=== PATIENT | male | born 1935 | race Caucasian/White ===

== ENCOUNTER → 2019-12-04 | Day surgery (SDC) | payer MEDICARE ==
[2019-12-02 15:17] LABS: BASOPHILS % 0.3 % (0.0-1.0); EOSINOPHILS # (AUTO) 0.1 (0.0-0.4); HEMATOCRIT 39.2 % (38.2-49.6); HEMOGLOBIN 13.4 g/dL (14.0-18.0); LYMPHOCYTES # (AUTO) 1.2 (1.0-3.2); LYMPHOCYTES % 16.5 % (18.0-39.1); MEAN CORPUSCULAR HEMOGLOBIN 32.4 pg (28-32); MEAN CORPUSCULAR HGB CONC 34.2 g/dL (31-35); MEAN CORPUSCULAR VOLUME 94.9 fL (81-99); MONOCYTES # (AUTO) 0.4 (0.2-0.8); NEUTROPHILS # (AUTO) 5.3 (2.1-6.9); NEUTROPHILS % 76.1 % (38.7-80.0); PLATELET COUNT 142 x10e3/uL (140-360); RED BLOOD COUNT 4.13 x10e6/uL (4.3-5.7); RED CELL DISTRIBUTION WIDTH 12.7 % (11.7-14.4)
--- NOTE | 2019-12-02 15:21 | Diagnostic Imaging Report ---
Chest, PA and lateral. History: Preoperative evaluation, M65.88. Comparison: None available. Discussion: The cardiomediastinal silhouette and pulmonary vasculature are within normal limits. The lungs are clear without evidence of consolidation or effusion. There are no acute osseous abnormalities. IMPRESSION: No acute cardiopulmonary abnormality. Signed by: Leroy Ahmadi MD on 12/02/2019 3:18 PM
[~2019-12-04] MED LIST: BACITRACIN 50,000 UNIT VIAL ONE; BUPIVACAINE HCL 0.5% INJ 30 ML VIAL INJ ONE; CEFAZOLIN SOD 1 GM/NS 50ML 50 ML IV ONE; CIPRO500 MG PO; DEXAMETHASONE SOD PHOS INJ 4 MG/ML VIAL ONE; LIDOCAINE HCL 2% LOCAL INJ 5 ML SDV VIAL INJ ONE; MUPIROCIN 2% OINT 22 GM TUBE ONE; ONDANSETRON HCL INJ 2MG/ML 2ML 2 MG/ML VIAL ONE; PREDNISONE10 MG PO; PROPOFOL IV EMULSION 10 MG/ML 20 ML VIAL ONE; SEVOFLURANE INHAL SOLN 250 ML PEN BTL ONE; SUGAMMADEX SODIUM 200 MG/2 ML VIAL IV ONE
--- OUTSIDE RECORDS SUMMARY | 2019-12-04 06:22 | XMS REPORT | Summary of Care ---
Author Oliverio Moore M.A. 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 * Quantity: 15 Refills: 0 YEH D.O., JARED-CANDELARIA * Start : 03-Jul-2018 Active Allergies and Adverse Reactions Name Dates Details No Known Drug Allergies (Allergy) Status: Active Past Medical History Name Dates Details H/O blood clots (V12.51, Z86.718) Status: Resolved History of backache (V13.59, Z87.39) Status: Resolved History of Cyst Status: Resolved History of Tumor cells (239.9, D49.9) Status: Resolved Procedures Procedure Dates Details History of Tonsillectomy With Adenoidectomy Completed History of Achilles tendon surgery Completed Immunization Name Dates Details Immunizations not documented Social History Name Dates Details - Status: Name Dates Details Never smoker Vital Signs Date Test Result Details [id number] BP Systolic 143 mm[Hg] Status: Comments: Location: LUE; Position: Sitting BP Diastolic 83 mm[Hg] Status: Comments: Location: LUE; Position: Sitting Physical Findings 1 Status: Comments: PHQ-9 Adult Depression Screening Height 67 in Status: Weight 183 lb Status: Body Mass Index Calculated 28.66 kg/m2 Status: Body Surface Area Calculated 1.95 m2 Status: Temperature 98.1 f Status: Comments: Method: Temporal Respiration Rate 16 /min Status: Heart Rate 83 /min Status: Results Date Description Value Details Results not documented Plan of Care Name Dates Details Planned Observations Planned Goals not documented Planned Encounters Infectious Disease Referral Interventions Provided Plan* Wound Discharge/Achilles Tendon Injury - stable. Obtain MRI of ankle per wound care. Referred Pt to infectious disease as this is recurring. * Meralgia Parestheica - Stable. Continue Mobic and Tizanadine PRN. * Follow-up in 3 months, sooner if needed Instructions Name Dates Details Instructions not documented Encounters Appointment; IVANIA TRACEY D.O. Encounter Diagnosis: Problem not documented On: 26-Mar-2018 15:15 Appointment; IVANIA TRACEY D.O. Encounter Diagnosis: Problem not documented On: 10-Apr-2018 15:15 Appointment; IVANIA TRACEY D.O. Encounter Diagnosis: Problem not documented On: 24-Jun-2018 13:45 Appointment; IVANIA TRACEY D.O. Encounter Diagnosis: Problem not documented On: 03-Sep-2019 14:45
--- OUTSIDE RECORDS SUMMARY | 2019-12-04 06:22 | XMS REPORT | Summary of Care ---
Author Author Tiffanie Simpson M.A. [facility] Unknown Address [facility] Phone Unavailable Care Team Providers Care Concrete Rubber Name Role Phone ALEXY Enriquez, IVANIA Unavailable Unavailable YEH DO [facility], IVANIA Unavailable Unavailable Unavailable Unavailable Functional Status [...] smoker Vital Signs Date Test Result Details [id number]-[id number] BP Systolic 143 mm[Hg] Status: Comments: Location: [...] Details Planned Observations Planned Goals not documented Interventions Provided Follow-ups/Referrals* Infectious Disease Referral; To Be Done: 03 Sep 2019 Plan* Wound Discharge/Achilles Tendon Injury - stable. [...]
--- OUTSIDE RECORDS SUMMARY | 2019-12-04 06:22 | XMS REPORT ---
Author Author [facility] Address Unknown Phone Unavailable Care Team Providers Care Adjunct Faculty Instructor Name Role Phone PIERCE LEONARD Unavailable Unavailable Payers Payer Name Policy Type Policy Number Effective Date Expiration Date Problems This patient has no known problems. Allergies, Adverse Reactions, Alerts This patient has no known allergies or adverse reactions. Medications This patient has no known medications. Results Test Description Test Time Test Comments Text Results Atomic Results Result Comments CHEST 2 VIEWS 2019-12-02 15:17:00 [place] [address] Patient Name: GABRIELA CERON MR #: [id number] : 1935 Age/Sex: 84/M Req #: [id number] Adm Physician: Ordered by: PIERCE LEONARD MD Report #: [id number] Location: OR Room/Bed: Procedure: [id number] DX/CHEST 2 VIEWS Exam Date: 12/02/19 Exam Time: 1440 REPORT STATUS: Signed Chest, PA and lateral. History: Preoperative evaluation, M65.88. Comparison: None available. Discussion: The cardiomediastinal silhouette and pulmonary vasculature are within normal limits. The lungs are clear without evidence of consolidation or effusion. There are no acute osseous abnormalities. IMPRESSION: No acute cardiopulmonary abnormality. Signed by: Leroy Blevins MD on 12/02/2019 3:18 PM Dictated By: LEROY BLEVINS MD 17 Transcribed By: KADI on 12/02/191517 COPY TO: PIERCE LEONARD MD - MRI LW JNT W/O CONT RT 2019-09-10 16:36:00 FAX: John Copeland MD [phone] [place]: St: REG Name: GABRIELA CERON [facility] : 1935 Age/S: 84/M [address] [place] [address] Unit #: [id number] Loc: [place] [address] Phys: John Negrete MD Acct: [id number] Dis Date: Status: REG CLI PHONE #: [phone] Exam Date: 09/10/2019 1434 FAX #: [phone] Reason: OSTEOMYELITIS EXAMS: CPT CODE: [id number] MRI LW JNT W/[place] [address] - MRI LW JNT W/O CONT RT, 09/10/2019 1:37 PM INDICATION: Osteomyelitis COMPARISON: None TECHNIQUE: Multi-planar, multi-sequence MR imaging of the right ankle and hindfoot was performed using routine protocol without gadolinium-based contrast. FINDINGS: . Bones: Normal marrow signal. No fracture, neoplasm,or osteonecrosis. . Soft tissues:Mild subcutaneous edema noted. No organized fluid collections identified. . Joints: No effusion or malalignment. . Medial flexor tendons: (including tibialis posterior, flexor digitorum longus, and flexor hallucis longus): Intact. . Peroneal tendons: Intact. . Anterior extensor tendons: (including tibialis anterior, extensor hallucis longus, and extensor digitorum longus): Intact. . Achilles tendon: There is previous Achilles tendon repair. The tendon is markedly thickened. There is T2 hyperintensity within the tendon measuring 1.47 m in width by 0.5 centers AP and extending for approximately 2.5 cm in length. This may represent small residual tear or mucinous degeneration. No full-thickness tear. Soft tissue anchors are identified in the posterior calcaneus. The tendon at the repair appears intact.. Lateral ligaments (including anterior/posterior tibiofibular, anterior/posterior talofibular and calcaneofibular): Intact. . Medial ligaments (including deep and superficial deltoid): Intact. . Plantar fascia: Intact. . Additional Comments: None. IMPRESSION: 1. Subcutaneous edema suggestive of cellulitis. Negative for osteomyelitis. 2. Previous Achilles tendon repair. The Achilles tendon is markedly thickened with longitudinal interstitial fluid signal which may represent mucinous degeneration or residual interstitial tear. PAGE 1 Signed Report (CONTINUED) FAX: John Copeland MD [phone] [place]: St: REG Name: GABRIELA CERON [facility] : 1935 Age/S: 84/M [address] [place] [address] Unit #: [id number] Loc: [place] [address] Phys: John Negrete MD Acct: [id number] Dis Date: Status: REG CLI PHONE #: [phone] Exam Date: 09/10/2019 1434 FAX #: [phone] Reason: OSTEOMYELITIS EXAMS: CPT CODE: [id number] MRI LW JNT W/[place] [address] <Continued> SL: KRE-H at 1636 Reported and signed by: Naun Sosa M.D. CC: John Ramirez Penelope Technologist: RT Gordo(R)(MR) Trnscrd Date/Time/By: 09/10/2019 (2726) : By: [email or web address] Orig Print D/T: S: 09/10/2019 (3081) PAGE 2 Signed Report
[2019-12-04 09:10] VITALS: BP 110/87
--- NOTE | 2019-12-04 12:50 | Operative Report ---
DATE OF PROCEDURE: 12/04/2019 SURGEON: Nazario Scott MD PREOPERATIVE DIAGNOSIS: Right Achilles tendon purulent tenosynovitis. POSTOPERATIVE DIAGNOSIS: Right Achilles tendon purulent tenosynovitis. PROCEDURE: Debridement of right Achilles tendon. ANESTHESIA: General. HISTORY: The patient is an 84-year-old male, who approximately a 1 to 1-1/2 years ago underwent grafting of the right Achilles tendon for a rupture. His postoperative course has been consistent for a persistent draining sinus at the bottom of his incision. He has had numerous courses of antibiotics without any improvement. MRI shows inflamed area involving both the pala Achilles tendon as well as the cadaver graft. The risks, benefits, and alternatives were discussed with the patient. He is prepared to undergo the procedure as outlined. PROCEDURE IN DETAIL: The patient was marked preoperatively in the holding area. He was brought to the operating theater and after the induction of adequate general anesthesia, he was prepped and draped in a prone position and a time-out was performed. The previous surgical incision was noted. The draining sinus at the inferior 3rd of the incision was noted as well. The previous incision was then marked out. The right lower extremity was exsanguinated and the tourniquet was inflated to a pressure of 350 mmHg. The incision was made through the skin and the subcutaneous tissues and small venous tributaries were controlled with electrocautery. The area of the draining sinus was completely excised and then the dissection continues through the full-thickness of the skin. From the previous surgery, there was dense adhesions and these were sharply released, allowing the skin flaps to be elevated off the circular previous surgical site. Immediately upon entering the space around the Achilles tendon, very thick exudate was encountered. This was cultured both aerobically and anaerobically, AFB and mycobacteria. The area was then widely opened and the area of infection was appreciated. Using sharp surgical debridement, the area of infection is excised down until the pala tendon is reached and had no further evidence of infection. The en bloc resection was then sent for permanent pathologic examination. The wound was then pulse lavaged with several liters of antibiotic containing solution and at this point, the skin was closed in layers utilizing 4-0 Vicryl in an interrupted buried fashion to approximate the deeper tissues and finally 4-0 nylon in interrupted horizontal mattress fashion. The area was infiltrated with 0.5% plain Marcaine for postop analgesia. Xeroform gauze, Bactroban ointment, and a sterile dressing are applied. The tourniquet was deflated. All the toes pinked up nicely and the patient was then returned to recovery room in satisfactory condition and discharged with a postoperative instruction sheet as well as a followup appointment. MD CHIOMA Boothe/GERALD /[id number]
== END | disposition home or self-care (01) ==
LOC: OR 05:15
PROVIDERS: ATTEND Plastic Surgery
DX: M65.88 Other synovitis and tenosynovitis, other site (principal); H91.90 Unspecified hearing loss, unspecified ear; G47.33 Obstructive sleep apnea (adult) (pediatric); I45.10 Unspecified right bundle-branch block; I49.3 Ventricular premature depolarization; F41.9 Anxiety disorder, unspecified; Z88.1 Allergy status to other antibiotic agents; Z01.810 Encounter for preprocedural cardiovascular examination; Z01.818 Encounter for other preprocedural examination; Z87.891 Personal history of nicotine dependence
CPT/HCPCS: 27654; 36415; 71046; 85025; 87071; 87116; 87205; 87206; 88305; 88312; 93005; J0690; J1100; J2001; J2405; J2704

== ENCOUNTER 2020-02-23 15:28 | Inpatient (IN) | payer MEDICARE, OTHER ==
[~2020-02-23] VITALS: Ht 165.1 cm; Wt 83.6 kg
[~2020-02-23 15:28] MED LIST changes: -BACITRACIN 50,000 UNIT VIAL ONE; -BUPIVACAINE HCL 0.5% INJ 30 ML VIAL INJ ONE; -CEFAZOLIN SOD 1 GM/NS 50ML 50 ML IV ONE; -DEXAMETHASONE SOD PHOS INJ 4 MG/ML VIAL ONE; -LIDOCAINE HCL 2% LOCAL INJ 5 ML SDV VIAL INJ ONE; -MUPIROCIN 2% OINT 22 GM TUBE ONE; -ONDANSETRON HCL INJ 2MG/ML 2ML 2 MG/ML VIAL ONE; -PROPOFOL IV EMULSION 10 MG/ML 20 ML VIAL ONE; -SEVOFLURANE INHAL SOLN 250 ML PEN BTL ONE; -SUGAMMADEX SODIUM 200 MG/2 ML VIAL IV ONE
--- NOTE | 2020-02-24 18:20 | NUR ---
Per Dr. Scott MRI can be done tomorrow. Plan is to take patient to OR on .
[2020-02-24 18:42] VITALS: BP 112/97
[2020-02-24 19:19] LABS: BASOPHILS # (AUTO) 0.1 (0.0-0.1); BASOPHILS % 0.8 % (0.0-1.0); EOSINOPHILS # (AUTO) 0.1 (0.0-0.4); EOSINOPHILS % 2.3 % (0.0-6.0); HEMATOCRIT 38.5 % (38.2-49.6); LYMPHOCYTES # (AUTO) 1.7 (1.0-3.2); MEAN CORPUSCULAR HEMOGLOBIN 32.7 pg (28-32); MEAN CORPUSCULAR HGB CONC 33.8 g/dL (31-35); MONOCYTES # (AUTO) 0.5 (0.2-0.8); MONOCYTES % 8.3 % (4.4-11.3); NEUTROPHILS # (AUTO) 3.7 (2.1-6.9); NEUTROPHILS % 61.1 % (38.7-80.0); PLATELET COUNT 215 x10e3/uL (140-360); RED BLOOD COUNT 3.97 x10e6/uL (4.3-5.7); RED CELL DISTRIBUTION WIDTH 12.7 % (11.7-14.4)
[2020-02-24 19:37] LABS: ALANINE AMINOTRANSFERASE 26 IU/L (0-55); ALBUMIN 3.6 g/dL (3.5-5.0); ALBUMIN/GLOBULIN RATIO 1.1 (0.8-2.0); ALKALINE PHOSPHATASE 76 IU/L (40-150); ANION GAP 11.5 mmol/L (8-16); BLOOD UREA NITROGEN 12 mg/dL (7-26); BUN/CREATININE RATIO 11 (6-25); CARBON DIOXIDE 25 mmol/L (22-29); CHLORIDE 110 mmol/L (98-107); CREATININE, SERUM 1.08 mg/dL (0.72-1.25); EST GLOMERULAR FILTRATION RATE > 60 ML/MIN (60-); GLUCOSE 102 mg/dL (74-118); POTASSIUM 4.5 mmol/L (3.5-5.1); SODIUM 142 mmol/L (136-145)
[2020-02-24 20:00] VITALS: BP 150/77
[2020-02-24] MEDS ORDERED: CEFEPIME 1GM/NS 0.9% 50 ML 50 ML IV SCH (20:00)
[2020-02-24 20:20] LABS: ERYTHROCYTE SEDIMENTATION RATE 27 mm/hr (0-13)
[2020-02-24] MEDS ORDERED: VANCOMYCIN 1GM/NS 250 ML 250 ML IV SCH (21:00)
--- NOTE | 2020-02-24 21:00 | NUR ---
Radiology called and confirmed picc team called
[2020-02-25] VITALS (8 sets, daily range): BP systolic 126–164; BP diastolic 70–86
--- NOTE | 2020-02-25 02:00 | NUR ---
At about 0200: Patient need PICC for abx, Radiology called, spoke to Diego and states team confirmed that they are almost here from [place].
--- NOTE | 2020-02-25 06:00 | Diagnostic Imaging Report ---
Examination: Single AP view of the chest. COMPARISON: Chest two views 12/02/2019 INDICATION: PICC line placement IMPRESSION: 1. Lines and Tubes: Left-sided PICC line has distal tip projecting at the level of the proximal to mid SVC 2. Lungs are grossly clear. No consolidation or effusion. 3. Cardiomediastinal silhouette is normal. Pulmonary vasculature is normal. 4. No acute bony abnormalities. Signed by: Dr. Jordan Zayas M.D. on 02/25/2020 5:57 AM
[2020-02-25] MEDS ORDERED: SODIUM CHLORIDE 0.9% 250ML 250 ML ONE (06:28)
[2020-02-25] MEDS: VANCOMYCIN 1GM/NS 250 ML 250 ML IV SCH (06:30)
--- NOTE | 2020-02-25 06:54 | NUR ---
patient endorsed to next shift for continuity of care.
--- NOTE | 2020-02-25 06:54 | NUR ---
RECEIVED BEDSIDE SHIFT REPORT FROM OFF GOING NURSE. PATIENT IS RESTING IN BED. NO ACUTE DISTRESS NOTED. CALL LIGHT WITHIN REACH. BED IN THE LOWEST POSITION.
[2020-02-25] MEDS ORDERED: GADOBENATE DIMEGLUMINE 1 ML IV ONE (10:02)
--- NOTE | 2020-02-25 12:26 | Diagnostic Imaging Report ---
TECHNIQUE: Magnetic resonance imaging of the right ankle was performed without and with injected contrast. 20 cc of MultiHance COMPARISON: None available. HISTORY: Infected ankle FINDINGS: Postsurgical change to the Achilles tendon status post prior repair with anchors in the posterior calcaneus. Soft tissue ulceration of the posteromedial ankle with sinus tract and phlegmon extending to the Achilles tendon. A thin 1.1 cm nonenhancing fluid collection posterior to the Achilles tendon seen on axial image 17, series 9. The distal 3.5 cm of the repaired tendon is severely degenerated with probable partial tearing. The remainder of the tendons around the ankle are intact. Generalized soft tissue swelling and edema of the ankle. IMPRESSION: Posteromedial ankle sinus tract with soft tissue ulceration and phlegmon extending to the Achilles tendon with thin fluid collection/abscess just posterior to the repaired tendon. The repaired distal Achilles tendon is severely degenerated with probable partial tearing. Signed by: Dr. Michele Monroy M.D. on 02/25/2020 12:23 PM
[2020-02-25] MEDS ORDERED: ACETAMINOPHEN 325 MG TAB PO PRN (14:15)
[2020-02-25] MEDS ORDERED: HYDROCODONE/APAP 5MG-325MG TAB PO PRN (14:15)
[2020-02-25] MEDS ORDERED: MELATONIN 5 MG TABLET PO PRN (14:15)
[2020-02-25] MEDS ORDERED: MORPHINE SULFATE 2 MG/ML SYR 1ML IV PRN (14:15)
[2020-02-25] MEDS ORDERED: DOCUSATE SODIUM 100 MG CAP PO PRN (14:15)
--- NOTE | 2020-02-25 18:20 | History and Physical ---
CHIEF COMPLAINT: Right ankle wound infection. HISTORY OF PRESENT ILLNESS: An 84-year-old male, who came in as a direct admission yesterday on 02/24/2020, by ID due to worsening right ankle wound infection. The patient reports he had an Achilles tendon repair 2 years ago and had on and off infections, requiring IV antibiotic therapy with no resolve. He now presents with worsening pain in that area and he is scheduled to have some surgery in the right ankle area with the Achilles tendon repair sometime on this admission. The patient is on IV antibiotics by ID. The patient denies any chest pain, palpitation, nausea, vomiting, or any recent fever. Denies any recent travel. The patient is seen and evaluated at bedside on the medical floor, currently doing well with no other issues at this time. REVIEW OF SYSTEMS: Pertinent positives: Right ankle wound infection. The rest of 14-point review of systems are reviewed with the patient and are negative. ALLERGIES: DOXYCYCLINE. HOME MEDICATIONS: He takes none. PAST MEDICAL HISTORY: He has right ankle wound infection. PAST SURGICAL HISTORY: Had a right ankle Achilles heel repair in the past, multiple infections, multiple debridements. PAST FAMILY HISTORY: Hypertension, diabetes. SOCIAL HISTORY: No drugs. No alcohol. Does not smoke. Good social support. PHYSICAL EXAMINATION: VITAL SIGNS: Temperature is 98.5, pulse 70, respirations 21, blood pressure 130/70, and pulse ox 100% on room air. GENERAL: Not in acute distress. Alert and oriented x3. Cooperative on examination. HEENT: Head; normocephalic, atraumatic. Eyes; pupils are equal, round, and reactive to light bilaterally. Extraocular movements are intact bilaterally. Throat, no evidence of any erythema or exudates in the posterior pharynx. Has poor dentition. NECK: Supple. Good range of motion. PULMONARY: Clear to auscultation bilaterally. No wheezing, no rales, no rhonchi, no crackles appreciated. CARDIOVASCULAR: Positive S1, S2. No murmurs, rubs, or gallops appreciated. ABDOMEN: Soft, nontender, nontender to palpation. Bowel sounds present. MUSCULOSKELETAL: Strength is 5/5 throughout. No evidence of any muscle deficits on examination. No weakness appreciated. NEUROLOGIC: Cranial nerves II through XII are grossly intact. No evidence of any neurological deficits on exam. SKIN: He does have his right ankle warm to touch areas of the Achilles tendon with evidence of infection. He does have a gauze wrapped around it right now. EXTREMITIES: No edema. Good range of motion throughout. LABORATORY DATA: White count 6.1, hemoglobin 13, hematocrit is 38, and platelets 215. Chemistry; sodium 142, potassium 4.5, chloride 110, bicarb 25, anion gap of 11, BUN 12, creatinine 1.08, glucose 102, calcium 9. LFTs within normal range. CRP pending. Albumin 3.6. Coronavirus is pending. MICROBIOLOGY: None. IMAGING STUDIES: MRI of the right ankle shows a posterior medial ankle sinus tract with soft tissue ulceration, phlegmon extending to the Achilles tendon and then fluid collection abscess just posterior to the tendon. Distal Achilles tendon is severely degenerated with probable partial tearing. IMPRESSION: Right ankle and Achilles tendon infection. PLAN: At this time, continue with aggressive IV antibiotic therapy. MRI of the right ankle noted. The patient will likely need some surgical intervention and it will likely occur sometime during this hospital stay. ID and Plastic Surgery have been consulted. Continue with IV antibiotics as per ID recommendations. Restart home medications. Lovenox for deep venous thrombosis prophylaxis. Encourage ambulation with PT and OT. MD SADIA Fenton/GERALD /[id number]
--- NOTE | 2020-02-25 18:44 | Consultation ---
DATE OF CONSULTATION: REASON FOR CONSULTATION: Infection of the ankle. HISTORY OF PRESENT ILLNESS: This patient, who is known to me from before. He is an 84-year-old, who had history of his ankle done more than a year ago. The patient also had a debridement done few months ago. He was given IV antibiotics and the culture at that time was negative. With IV antibiotic, he was discharged home. The patient seems to be a bit forgetful, not really reliable. I am not so sure if there is some early confusion. The patient has painful redness and swelling in the ankle again. He was advised to go to the emergency room, but we were in the amid of COVID-19 and there was some confusion apparently. Finally, we were able to admit the patient. The patient is being admitted for debridement and obtaining cultures. The patient denies any fever or chills. PAST MEDICAL HISTORY: Otherwise multiple surgeries he had tendon ligation. SOCIAL HISTORY: There is no smoking, drug abuse, or alcohol abuse. FAMILY HISTORY: Otherwise unremarkable. PHYSICAL EXAMINATION: GENERAL: Currently alert and oriented. Does not seem to be in acute distress. VITAL SIGNS: Stable, currently afebrile. HEENT: He is not icteric. NECK: Supple. CHEST: Clear. HEART: S1 and S2. No S3, S4, or murmur. ABDOMEN: Soft. Bowel sounds present. No tenderness. EXTREMITIES: No edema. On the ankle, there is erythema and induration. IMPRESSION: Infection of the ankle. Discussed with the patient. We will get an MRI. An MRI was done, showed posterior medial ankle sinus tract with soft tissue ulceration and phlegmon extending at the Achilles tendon. Discussed with Plastic Surgery. Agree with debridement, sent for cultures. My concern if he have foreign body and the infection. We will put him on vancomycin and cefepime until we get the cultures. Obtain sedimentation rate and C-reactive protein. Continue medication at home as ordered. We will follow. MD LIGIA Alvarado/GERALD /[id number]
--- NOTE | 2020-02-25 19:12 | NUR ---
BEDSIDE SHIFT REPORT GIVEN TO ONCOMING NURSE. PATIENT IS RESTING IN BED, NO ACUTE DISTRESS NOTED. CALL LIGHT WITHIN REACH. BED IN THE LOWEST POSITION.
[2020-02-26] VITALS (7 sets, daily range): BP systolic 120–143; BP diastolic 71–76
[2020-02-26] MEDS: CEFEPIME 1GM/NS 0.9% 50 ML 50 ML IV SCH (06:20)
[2020-02-26 06:21] LABS: BASOPHILS % 0.8 % (0.0-1.0); EOSINOPHILS # (AUTO) 0.1 (0.0-0.4); EOSINOPHILS % 2.3 % (0.0-6.0); HEMATOCRIT 36.3 % (38.2-49.6); HEMOGLOBIN 12.3 g/dL (14.0-18.0); LYMPHOCYTES # (AUTO) 1.3 (1.0-3.2); LYMPHOCYTES % 24.9 % (18.0-39.1); MEAN CORPUSCULAR HEMOGLOBIN 31.9 pg (28-32); MEAN CORPUSCULAR HGB CONC 33.9 g/dL (31-35); MEAN CORPUSCULAR VOLUME 94.3 fL (81-99); MONOCYTES # (AUTO) 0.4 (0.2-0.8); MONOCYTES % 7.9 % (4.4-11.3); NEUTROPHILS # (AUTO) 3.3 (2.1-6.9); NEUTROPHILS % 63.5 % (38.7-80.0); PLATELET COUNT 163 x10e3/uL (140-360); RED BLOOD COUNT 3.85 x10e6/uL (4.3-5.7); RED CELL DISTRIBUTION WIDTH 12.3 % (11.7-14.4)
--- NOTE | 2020-02-26 06:50 | NUR ---
RECEIVED BEDSIDE SHIFT REPORT FROM OFF GOING NURSE. PATIENT IS RESTING IN BED. NO ACUTE DISTRESS NOTED. CALL LIGHT WITHIN REACH. BED IN THE LOWEST POSITION.
[2020-02-26] MEDS: VANCOMYCIN 1GM/NS 250 ML 250 ML IV SCH (06:55)
--- NOTE | 2020-02-26 06:55 | NUR ---
Patient endorsed to next shift for continuity of care.
--- NOTE | 2020-02-26 07:26 | NUR ---
PATIENT OFF UNIT TO OR AT THIS TIME.
[2020-02-26] MEDS ORDERED: MUPIROCIN 2% OINT 22 GM TUBE ONE (07:57)
[2020-02-26] MEDS ORDERED: BUPIVACAINE HCL 0.5% INJ 30 ML VIAL INJ ONE (07:57)
[2020-02-26] MEDS ORDERED: BACITRACIN 50,000 UNIT VIAL ONE (07:58)
[2020-02-26 08:04] LABS: ANION GAP 11.1 mmol/L (8-16); BLOOD UREA NITROGEN 10 mg/dL (7-26); BUN/CREATININE RATIO 12 (6-25); CALCIUM 8.3 mg/dL (8.4-10.2); CARBON DIOXIDE 25 mmol/L (22-29); CHLORIDE 108 mmol/L (98-107); CREATININE, SERUM 0.81 mg/dL (0.72-1.25); EST GLOMERULAR FILTRATION RATE > 60 ML/MIN (60-); GLUCOSE 97 mg/dL (74-118); POTASSIUM 4.1 mmol/L (3.5-5.1); SODIUM 140 mmol/L (136-145)
--- NOTE | 2020-02-26 09:20 | NUR ---
PATIENT BACK TO UNIT AT THIS TIME. IN STABLE CONDITION.
--- NOTE | 2020-02-26 10:27 | Operative Report ---
DATE OF PROCEDURE: 02/26/2020 SURGEON: Nazario Scott MD PREOPERATIVE DIAGNOSES: 1. Compartment syndrome, posterior compartment, right ankle. 2. Purulent tenosynovitis. POSTOPERATIVE DIAGNOSES: 1. Compartment syndrome, posterior compartment, right ankle. 2. Purulent tenosynovitis. PROCEDURE: Decompressive fasciotomy of posterior compartment with debridement of nonviable Achilles tendon. ANESTHESIA: General. HISTORY: The patient is an 84-year-old male, who approximately two years ago underwent Achilles tendon reconstruction on the right side using cadaver graft. Postoperatively, the patient's postsurgical course was complicated by persistent infections for approximately 12-18 months. This culminated and the patient being transferred to my service. He was taken to the OR around the beginning of the year and a surgical debridement of all nonviable Achilles tendon was performed. The patient had healed satisfactorily after a prolonged course of antibiotics and was released in December of this year. The patient returned several days ago with redness, swelling and pain with dorsiflexion of the right foot. He was sent to the Infectious Disease specialist, who arranged for the patient to be admitted. The patient's admission MRI reveals there to be significant degeneration of the cadaver allograft with possible fluid collection abscess behind the Achilles tendon with a draining sinus to the external surface. The risks, benefits, and alternatives of treatment were discussed with the patient. He is prepared to undergo the procedure as outlined. PROCEDURE IN DETAIL: The patient was marked preoperatively in the holding area. He was brought to the operating theater. After the induction of adequate general anesthesia, he was then prepped and draped in the left lateral decubitus position and a time-out was performed. The draining sinus was located just medial to the patient's prior surgical midline incisions over the Achilles tendon. Cultures are placed through the sinus tract into the Achilles tendon and cultures aerobic, anaerobic, AFB and mycobacterial are obtained. At this point, the previous surgical incision was incised through the skin and the subcutaneous tissues. Bleeding was controlled using electrocautery. The flaps were elevated off the Achilles tendon and there was obvious defect in the tendon which was extending to the subtendinous space. This area was then explored. Fluid was obtained and the area is debrided with a curette and a sharp surgical excision of the nonviable Achilles tendon. Once all the devitalized infected tissue had been removed, the Achilles tendon and the sub-Achilles tendon space were then lavaged with a power lavage system using 1-2 L of antibiotic-containing solution. At this point 0.25 inch packing was placed through the Achilles tendon into the subtendinous space. The wound was then loosely closed with 3-0 nylon suture around the packing in an interrupted fashion. Bactroban ointment, Xeroform gauze, and a sterile bulky conforming bandage were applied to the foot and ankle. The patient tolerated the procedure well. The estimated blood loss of procedure was approximately 25 mL. He was returned to recovery room in satisfactory condition and then just sent back to his hospital bed for further care and treatment. MD CHIOMA Boothe/GERALD /[id number]
--- NOTE | 2020-02-26 15:01 | Progress Note ---
DATE: 02/26/2020 SUBJECTIVE: The patient underwent debridement today of his Achilles heel. He is doing well. Very little bit pain. No overnight events. OBJECTIVE: VITAL SIGNS: Temperature 98.3, pulse 64, respiratory rate is 20, blood pressure 143/75, and pulse ox 98% on room air. GENERAL: Not in acute distress, alert and oriented x3. Cooperative on examination. HEENT: Head is normocephalic, atraumatic. Eyes; pupils are equal, round, and reactive to light bilaterally. Extraocular movements are intact bilaterally. Throat, no evidence of any erythema or exudates in the posterior pharynx. Has poor dentition. NECK: Supple. Good range of motion. PULMONARY: Clear to auscultation bilaterally. No wheezing, rales, or rhonchi. No crackles appreciated. CARDIOVASCULAR: Positive S1, S2. No murmurs, rubs, or gallops appreciated. ABDOMEN: Soft, nondistended, nontender to palpation. Bowel sounds present. MUSCULOSKELETAL: Strength is 5/5 throughout. No evidence of any muscle deficits on examination. No weakness appreciated. NEUROLOGICAL: Cranial nerves II through XII are grossly intact. No evidence of any neurological deficits on exam. SKIN: Intact, warm to touch. Good cap refill. PSYCHIATRIC: Normal affect and mood. EXTREMITIES: No edema. Good range of motion throughout. LABORATORY DATA: Labs show white count 5.1, hemoglobin 12, hematocrit 36, and platelets of 163. Chemistry; reviewed, normal. Now wound cultures are all pending. Imaging, nothing new. IMPRESSION: 1. Right ankle and Achilles tendon infection, status post debridement and washout performed today on 02/26/2020, by Plastic Surgery. 2. Purulent tenosynovitis. 3. Compartment syndrome of posterior compartment, right ankle. PLAN: At this time, he underwent debridement, washout of that of the right ankle by Plastic Surgery today. Continue with monitoring wound cultures. Aggressive IV antibiotic therapy. Pain control. Once the cultures are back, then we will have a rough idea which antibiotic to discharge home. He is not ready for discharge at this time. Lovenox for DVT prophylaxis. MD SADIA Fenton/MODL /[id number]
--- NOTE | 2020-02-26 16:46 | Progress Note ---
DATE: SUBJECTIVE: The patient is seen and evaluated. Available labs and notes reviewed. Discussed with the nurse. Discussed with Dr. iRvera. REVIEW OF SYSTEMS: No nausea, vomiting, fever, chills, chest pain, shortness of breath, headache, rash, or dysuria. PHYSICAL EXAMINATION: VITAL SIGNS: Temperature 98.3, pulse 64, respiration 20, and blood pressure 143/75. GENERAL: Alert and oriented. No acute distress, very pleasant. CV: S1 and S2. CHEST: Equal expansion. Clear to auscultation. No acute distress. ABDOMEN: Soft, nontender, and no distention. HEENT: Moist. No pallor. No JVD. EXTREMITIES: Right foot with surgical wound dressing. MEDICATIONS: Reviewed and from ID point of view, the patient is on vancomycin IV and cefepime. LABORATORY STUDIES: Serology; coronavirus PCR not detected on 02/23. White blood cells 5.19, hemoglobin 12.3, and platelet 163. Sodium 140, potassium 4.1, and creatinine 0.81. MICROBIOLOGY: Cultures from surgery pending. IMAGING: MRI of the right ankle showed a posterior medial ankle sinus tract with soft tissue ulceration of phlegmon extending to the Achilles tendon with thin fluid collection/abscess just posterior to the repaired tendon. ASSESSMENT AND PLAN: 1. Infected right ankle. 2. Purulent tenosynovitis, right Achilles tendon. 3. Status post debridement of right Achilles tendon. 4. Continue with antibiotic. Follow up with the cultures. Monitor the patient clinically. Continue with wound care. Pain management per others. Follow with vancomycin trough. Please refer to chart for more information. Dictated by Sharath Gentile PA-C (Al) Valente Rivera MD /MODL /[id number]
--- NOTE | 2020-02-26 18:55 | NUR ---
Received patient from day nurse, patient is stable, fall and safety precautions maintained at this time: bed in lowest position and locked, needed items beside bed and call myers placed close to patient, patient instructed to use it to call nurses for any assistance needed, patient verbalized understanding. Patient is currently stable will continue to monitor.
--- NOTE | 2020-02-26 19:00 | NUR ---
BEDSIDE SHIFT REPORT GIVEN TO ONCOMING NURSE. PATIENT IS RESTING IN BED. NO ACUTE DISTRESS NOTED AT THIS TIME. CALL LIGHT WITHIN REACH. BED IN THE LOWEST POSITION.
[2020-02-26] MEDS ORDERED: SEVOFLURANE INHAL SOLN 250 ML PEN BTL ONE (19:07)
[2020-02-26] MEDS ORDERED: ONDANSETRON HCL INJ 2MG/ML 2ML 2 MG/ML VIAL ONE (19:07)
[2020-02-26] MEDS ORDERED: PROPOFOL IV EMULSION 10 MG/ML 20 ML VIAL ONE (19:07)
[2020-02-26] MEDS ORDERED: LIDOCAINE HCL 2% LOCAL INJ 5 ML SDV VIAL INJ ONE (19:07)
[2020-02-26] MEDS ORDERED: KETOROLAC TROMETHAMINE 30 MG/ML VIAL ONE (19:07)
[2020-02-26] MEDS ORDERED: DEXAMETHASONE SOD PHOS INJ 4 MG/ML VIAL ONE (19:07)
[2020-02-27] VITALS (8 sets, daily range): BP systolic 105–145; BP diastolic 61–90
[2020-02-27] MEDS: CEFEPIME 1GM/NS 0.9% 50 ML 50 ML IV SCH (06:27)
--- NOTE | 2020-02-27 06:42 | NUR ---
RECEIVED BEDSIDE SHIFT REPORT FROM OFF GOING NURSE. PATIENT IS RESTING IN BED. NO ACUTE DISTRESS NOTED. CALL LIGHT WITHIN REACH. BED IN THE LOWEST POSITION.
[2020-02-27 07:07] LABS: BASOPHILS % 0.3 % (0.0-1.0); EOSINOPHILS % 0.1 % (0.0-6.0); LYMPHOCYTES # (AUTO) 1.6 (1.0-3.2); LYMPHOCYTES % 14.6 % (18.0-39.1); MEAN CORPUSCULAR HEMOGLOBIN 31.5 pg (28-32); MEAN CORPUSCULAR HGB CONC 33.3 g/dL (31-35); MEAN CORPUSCULAR VOLUME 94.5 fL (81-99); MONOCYTES # (AUTO) 0.8 (0.2-0.8); MONOCYTES % 6.9 % (4.4-11.3); NEUTROPHILS # (AUTO) 8.6 (2.1-6.9); NEUTROPHILS % 77.7 % (38.7-80.0); PLATELET COUNT 166 x10e3/uL (140-360); RED BLOOD COUNT 3.81 x10e6/uL (4.3-5.7); RED CELL DISTRIBUTION WIDTH 12.3 % (11.7-14.4)
[2020-02-27] MEDS: VANCOMYCIN 1GM/NS 250 ML 250 ML IV SCH (07:10)
[2020-02-27 07:14] LABS: ANION GAP 10.1 mmol/L (8-16); BLOOD UREA NITROGEN 14 mg/dL (7-26); BUN/CREATININE RATIO 15 (6-25); CALCIUM 8.6 mg/dL (8.4-10.2); CARBON DIOXIDE 24 mmol/L (22-29); CHLORIDE 109 mmol/L (98-107); CREATININE, SERUM 0.92 mg/dL (0.72-1.25); EST GLOMERULAR FILTRATION RATE > 60 ML/MIN (60-); GLUCOSE 100 mg/dL (74-118); POTASSIUM 4.1 mmol/L (3.5-5.1); SODIUM 139 mmol/L (136-145)
--- NOTE | 2020-02-27 07:26 | NUR ---
patient endorsed to next shift for continuity of care.
[2020-02-27] MEDS: ENOXAPARIN SOD INJ 40 MG/0.4 ML SYR SC SCH (08:49)
--- NOTE | 2020-02-27 09:58 | Progress Note ---
DATE: SUBJECTIVE: The patient is seen and evaluated, available labs and notes reviewed. Discussed with Dr. Rivera. REVIEW OF SYSTEMS: No nausea, vomiting, fever, chills, chest pain, shortness of breath. PHYSICAL EXAMINATION: VITAL SIGNS: Temperature 98.4, pulse is 61, respirations 20, and blood pressure 137/74. GENERAL: Alert and oriented, in no acute distress. CV: S1 and S2. CHEST: Equal expansion, clear to auscultation. No acute distress. HEENT: Moist. No pallor. No JVD. EXTREMITIES: Right foot/ankle dressed with surgical dressing. MEDICATIONS: On vancomycin IV and cefepime. MICROBIOLOGY: All cultures including an AFB, mycoplasma, and cultures pending from the foot on 02/26/2020. RADIOLOGY STUDIES: No new radiology studies available. ASSESSMENT AND PLAN: 1. Infected right ankle. 2. Purulent tenosynovitis of the right Achilles tendon. The patient is status post debridement of the right Achilles tendon. Follow up with the cultures. Continue with antibiotics. Follow up with vancomycin level. The patient's Coronavirus disease 2019 was not detected on 02/24/2020. Please refer to chart for more information. Dictated by Sharath Ramirez) GRACY Gentile Valente Rivera MD /MODL /[id number]
[2020-02-27] MEDS ORDERED: MUPIROCIN 2% OINT 22 GM TUBE TOP SCH (12:00)
--- NOTE | 2020-02-27 13:32 | NUR ---
Received order for LTAC eval. Spoke to pt at bedside. EVARISTO Moody had spoken to pt about LTAC already today. Pt gave choice for [facility] in [place]. Signed choice letter placed in front of chart. Copy to pt. Referral faxed to [facility] at [phone] [facility] was notified of referral.
--- NOTE | 2020-02-27 16:21 | Progress Note ---
DATE: 02/27/2020 Medicine Progress Note SUBJECTIVE: The patient is doing well today with no complaints. No overnight events. PHYSICAL EXAMINATION: VITAL SIGNS: Temperature is 98.6, pulse 70, respiratory rate is 20, blood pressure 137/77, pulse ox 96% on room air. GENERAL: Not in acute distress, alert and oriented x3. Cooperative on examination. HEENT: Head is normocephalic, atraumatic. Eyes; pupils are equal, round, and reactive to light bilaterally. Extraocular movements are intact bilaterally. Throat, no evidence of any erythema or exudates in the posterior pharynx. NECK: Supple. Good range of motion. PULMONARY: Clear to auscultation bilaterally. No wheezing, rales, or rhonchi. CARDIOVASCULAR: Positive S1, S2. No murmurs, rubs, or gallops appreciated. ABDOMEN: Soft, nondistended, nontender to palpation. Bowel sounds present. EXTREMITIES: Right lower extremity has gauze wrapping from the area of the debridement. LABORATORY DATA: Lab findings show white count 11, hemoglobin 12, hematocrit 36, platelets of 166. Chemistry; sodium 139, potassium 4.1, chloride 109, bicarb 24, anion gap of 10, BUN is 14, creatinine is 0.92, glucose was 100. Calcium is 8.6. Coronavirus not detected. Wound cultures are still pending. IMPRESSION: 1. Right ankle and Achilles tendon infection, status post debridement, washout performed on 02/26/2020, by Plastic Surgery. 2. Purulent tenosynovitis. 3. Compartment syndrome of posterior compartment of the right ankle. PLAN: At this time, his right ankle has improved tremendously. We will monitor all cultures. Continue with IV antibiotic therapy. Local wound care. Plastic surgery. ID is following. Arrangement for LTAC, which the patient agreed to, which is [facility]. He will be under Dr. Haddad. Mello for DVT prophylaxis. MD SADIA Fenton/MODL /[id number]
--- NOTE | 2020-02-27 18:50 | NUR ---
Received patient from day nurse, patient is alert and oriented x3, safety and fall precaution maintained as per hospital protocol: bed in lowest position and locked, needed items beside bed and call myers placed close to patient, patient instructed to use it to call nurses for any assistance needed, patient verbalized understanding. patient is currently stable, will continue to monitor.
--- NOTE | 2020-02-27 19:24 | NUR ---
BEDSIDE SHIFT REPORT GIVEN TO ONCOMING NURSE. PATIENT IS IN STABLE CONDITION, RESTING IN BED. CALL LIGHT WITHIN REACH. BED IN THE LOWEST POSITION.
[2020-02-28 00:43] VITALS: BP 151/93
[2020-02-28 05:00] VITALS: BP 149/77
[2020-02-28] MEDS: CEFEPIME 1GM/NS 0.9% 50 ML 50 ML IV SCH (06:11)
--- NOTE | 2020-02-28 06:58 | NUR ---
Patient endorsed to next shift for continuity of care.
[2020-02-28] MEDS: VANCOMYCIN 1GM/NS 250 ML 250 ML IV SCH (07:30)
[2020-02-28 08:01] VITALS: BP 149/77
[2020-02-28 08:03] VITALS: BP 147/77
[2020-02-28] MEDS: ENOXAPARIN SOD INJ 40 MG/0.4 ML SYR SC SCH (09:15)
--- NOTE | 2020-02-28 10:43 | NUR ---
SPOKE WITH RAJIV AT [facility] MOT: CALL REPORT TO [phone] Elsie FLORES ADMIN: SITA VALE NOTE PUT ON FRONT OF CHART ASKING DR MCPHERSON FOR DISCHARGE GAVE NURSE AJ CHRISTIANSON TO CALL REPORT WHEN DISCHARGED MOT IN PACKET AT DESK
--- NOTE | 2020-02-28 13:10 | Discharge Summary ---
FINAL DISCHARGE DIAGNOSES: 1. Right ankle an Achilles tendon infection, status post debridement and washout performed on 02/26/2020, by Plastic Surgery. 2. Purulent tenosynovitis. 3. Compartment syndrome of the posterior compartment of the right ankle-improving. CONSULTANTS: Plastic Surgery and ID. VITAL SIGNS: Temperature is 98.4, pulse 69, respiratory rate is 20, blood pressure 147/77, pulse ox 97% on room air. LABORATORY FINDINGS: Show white count is 11, hemoglobin 12, hematocrit is 36, and platelets of 166. Chemistry; sodium 139, potassium 4.1, chloride 109, bicarb 24, anion gap of 10, BUN is 14, creatinine is 0.92, glucose is 100, calcium is 8.6, albumin 3.6. Coronavirus not detected. MICROBIOLOGY: Several cultures of the right ankle have been sent out and still pending. Final microbiology growth, so far no growth to date. IMAGING STUDIES: MRI of the ankle shows posteromedial ankle sinus tract with soft ulceration and phlegmon extending to the Achilles tendon with thin fluid collection abscess just posterior to the repaired tendon. The repaired distal Achilles tendon is severely degenerative with probable partial tearing. HOSPITAL COURSE: This is an 84-year-old male, directly admitted from the [facility] needing further evaluation and management in relation to his right ankle. The patient has had wound infection in the right ankle in the past and came in for further evaluation and management. Plastic Surgery and ID were consulted. The patient underwent status post right ankle and Achilles tendon and debridement and washout on 02/26/2020, by Plastic Surgery. The patient is maintained on IV antibiotics. All cultures are still pending. The patient had local wound care provided by Plastic Surgery. The patient was then eventually discharged to [facility] for further wound care and IV antibiotic therapy. The patient improved throughout the hospital course prior to being discharged to home. He was back to normal baseline prior to being discharged. The patient will be discharged on IV antibiotic therapy for significant number of weeks as per recommendations by ID. The patient was cleared for discharge by all consultants. On the day of discharge, vital signs were stable, labs reviewed and stable. The patient is seen and evaluated and examined thoroughly on the day of discharge with no other complaints. The patient verbalized understanding and agrees to plan of care to follow up as an outpatient with the primary care physician in 1 week. Plastic Surgery and ID in 2 weeks' time. MEDICATIONS: See med reconciliation form. DISPOSITION: [facility]. CONDITION: Stable. DIET: Heart healthy. In the event of any worsening symptoms, the patient was advised come back to the ED for further evaluation. Discharge summary took greater than 35 minutes. MD SADIA Fenton/GERALD /[id number]
--- NOTE | 2020-02-28 13:54 | NUR ---
Report called to Marya at [facility].
--- NOTE | 2020-02-28 15:30 | NUR ---
EMS is here to transport patient to [facility] for continuing antibiotics
--- NOTE | 2020-02-28 17:12 | Progress Note ---
DATE: SUBJECTIVE: Mr. Cee is doing good. There are no new complaints. His cultures, no growth. OBJECTIVE: GENERAL: He is currently alert, oriented. VITAL SIGNS: Stable, afebrile. HEENT: He is not icteric. NECK: Supple. CHEST: Clear. HEART: S1, S2. ABDOMEN: Soft. IMPRESSION: Tendinitis, Achilles tendon infection, status post surgery. Continue IV antibiotic as ordered for 3 weeks. Cultures still pending, to be discharged to [facility] for [facility] with the CBC, weekly chem panel. We will follow. Answered all his questions. MD LIGIA Alvarado/GERALD /[id number]
== END 2020-02-28 15:25 | DRG 501 ==
LOC: MED/SURG2 02-24 17:02
PROVIDERS: ADMIT Internal Medicine; ATTEND Internal Medicine
PROC: 02HV33Z Insertion of Infusion Device into Superior Vena Cava, Percutaneous Approach (ICD-10-PCS; 2020-02-25)
PROC: 0LBS0ZZ Excision of Right Ankle Tendon, Open Approach (ICD-10-PCS; 2020-02-26)
PROC: 0KNS0ZZ Release Right Lower Leg Muscle, Open Approach (ICD-10-PCS; principal; 2020-02-26 07:30)
DX: M65.171 Other infective (teno)synovitis, right ankle and foot (principal); M79.A21 Nontraumatic compartment syndrome of right lower extremity; Z11.59 Encounter for screening for other viral diseases
CPT/HCPCS: 36415; 36569; 71045; 80048; 80053; 80202; 85025; 85651; 86140; 87071; 87075; 87109; 87116; 87205; 87206; J0692; J1100; J1650; J1885; J2001; J2405; J3370; J7050; U0002